=== PATIENT | female | born 1990 | race Caucasian/White ===

== ENCOUNTER → 2017-04-08 15:09 | Outpatient (CLI) | payer OTHER, SELFPAY ==
[2017-04-08 18:17] LABS: Chlamydia Trachomatis by PCR Negative (Negative); Neisserai gonorrhoeae by PCR Negative (Negative); Probe Check PASS; Sample Adequacy Control PASS; Specimen Processing Control PASS
== END ==
PROVIDERS: Visit Provider Obstetrics & Gynecology
DX: Z12.4 Encounter for screening for malignant neoplasm of cervix (principal); Z11.3 Encounter for screening for infections with a predominantly sexual mode of transmission; Z32.01 Encounter for pregnancy test, result positive
CPT/HCPCS: 87491; 87591

== ENCOUNTER → 2017-05-06 10:39 | Outpatient (CLI) | payer OTHER, SELFPAY ==
[2017-05-06 13:47] LABS: Color, Urine Straw (Yellow); Glucose, Dipstick Normal (Normal); Ketone-Dipstick Negative (Negative); Leukocyte Esterase-Dipstick 100 /ul (Negative); Nitrite-Dipstick Negative (Negative); Occult Blood-Urine Negative /ul (Negative); Protein-Dipstick Negative (Negative); Urine Bilirubin Dipstick Negative (Negative); Urine Clarity Clear (Clear); Urine Urobilinogen Normal (Normal)
[2017-05-06 13:53] LABS: Absolute Lymphocyte Count 1.54 X10^3/ul (0.83-4.51); Absolute Neutrophil Count 6.6 X10^3/uL (2.0-7.7); Basophil# 0.03 X10^3/uL; Basophil% 0.3 % (0-1); Eosinophil# 0.07 X10^3/uL; Eosinophils% 0.8 % (0-5); Hematocrit 37.8 % (37-47); Lymphocyte # 1.54 X10^3/ul (4.0); Lymphocyte % 17.7 % (19-41); Mean Corp Hgb Conc 34.4 g/gl (32-36); Mean Corpuscular Hgb 31.7 pg (27.0-32.0); Mean Corpuscular Volume 92.2 fL (81-99); Mean Platelet Vol. 10.9 fl (6.2-12.0); Monocyte# 0.41 X10^3/uL; Monocyte% 4.7 % (0-10); Neutrophil % 76.2 % (47-70); Platelet Count 236 K/mm3 (150-450); RBC Distribution Width CV 12.7 % (11.6-14.6); RBC Distribution Width SD 42.1 fl (35.1-43.9); White Blood Count 8.7 K/mm3 (4.4-11.0)
[2017-05-06 13:59] LABS: POSITIVE COUNT NO; POSITIVE DIFFERENTIAL NO; POSITIVE MORPHOLOGY NO
[2017-05-06 14:01] LABS: Amphetamine Urine VISTA NEGATIVE (<1000 ng/mL); Barbiturate Urine VISTA NEGATIVE (< 200 ng/mL); Benzodiazepine Urine VISTA NEGATIVE (< 200 ng/mL); Cocaine Urine VISTA NEGATIVE (< 300 ng/mL); Ecstacy Urine VISTA NEGATIVE (< 500 ng/mL); Methadone Urine VISTA NEGATIVE (< 300 ng/mL); PCP Urine VISTA NEGATIVE (< 25 ng/mL); THC Urine VISTA NEGATIVE (< 50 ng/mL); Vista UDS pH Range 7
[2017-05-06 14:05] LABS: Thyroid Stim Hormone (TSH) 1.64 uIU/mL (0.358-3.74)
[2017-05-07 10:12] LABS: HIV - WCH Non-Reactive (Nonreactive); Rubella IgG 245.6 IU/mL
[2017-05-07 11:45] LABS: HEPATITIS B SURFACE AG Negative (Negative); Hep C Antibodies 0.2 s/co ratio (0.0-0.9)
[2017-05-09 02:54] LABS: Prenatal RPR NONREACTIVE (NONREACTIVE)
== END ==
LOC: WOBLAB 10:42
PROVIDERS: Visit Provider Obstetrics & Gynecology
DX: Z34.82 Encounter for supervision of other normal pregnancy, second trimester (principal)
CPT/HCPCS: 36415; 80307; 81002; 84443; 85025; 86703; 86762; 86803; 87340

== ENCOUNTER → 2017-06-03 09:52 | Outpatient (CLI) | payer OTHER, SELFPAY ==
[2017-06-06 20:07] LABS: Comment Report (.); DIA MoM Value 0.53 (.); DIA Value-EIA 80.21 pg/mL (.); DSR (By Age) 805 (.); DSR (Second Trimester) 10000 (.); Gestat. Age Based On As provided (.); Insulin Dep Diabetes No (.); Maternal Age At EDD 28.7 YEARS (.); hCG MoM 0.41 (.); hCG Value 11821 mIU/mL (.)
== END ==
PROVIDERS: Visit Provider Obstetrics & Gynecology
DX: Z34.82 Encounter for supervision of other normal pregnancy, second trimester (principal)
CPT/HCPCS: 36415; 82105; 82677; 84702; 86336

== ENCOUNTER 2017-08-01 16:05 | Outpatient (CLI) | payer OTHER, SELFPAY ==
[2017-08-01 16:35] LABS: Red Blood Cells-Urine 0 SEEN /hpf (0-5)
[2017-08-01 16:38] VITALS: BMI 34.7
[2017-08-01 16:40] LABS: Color, Urine Yellow (Yellow); Glucose, Dipstick Normal (Normal); Ketone-Dipstick Negative (Negative); Leukocyte Esterase-Dipstick 25 /ul (Negative); Nitrite-Dipstick Negative (Negative); Occult Blood-Urine Negative /ul (Negative); Protein-Dipstick Negative (Negative); Urine Bilirubin Dipstick Negative (Negative); Urine Clarity Sl. Cloudy (Clear); Urine Urobilinogen Normal (Normal)
[2017-08-01 16:48] LABS: Squamous Epithelial Cells - UA 0-5 SEEN /hpf (5-10)
[2017-08-01 16:49] LABS: Bacteria 1+ /hpf (None Seen); White Blood Cells 0-5 SEEN /hpf (0-5)
[2017-08-01 16:50] LABS: Mucous, Urine RARE /hpf (<or=2+)
[2017-08-01 17:32] LABS: ROM Internal Control Test YES-OK TO RESULT pt. (Internal QC); ROM Patient Test Negative (Negative)
--- NOTE | 2017-08-05 07:21 | OB.TRI.NOTE ---
- Problem List (1) False labor before 37 completed weeks of gestation Status: Acute Qualifiers: Trimester: second trimester Qualified Code(s): O47.02 - False labor before 37 completed weeks of gestation, second trimester History of Present Illness Date of Service: 08/01/17 Was patient seen by the physician?: Yes Reason For Visit: LEFT UPPER QUADRANT PAIN Final TORRES: 11/10/17 Final TORRES Source: US <20 weeks Gestational age: 26 Weeks and 1 Days History of Present Illness: 27yo @ 25 4/7wga with c/o iesha-umbilical pain with extension into Left upper quadrant. Denies nausea, vomiting, chest pain, shortness of breath, back pain, dysuria, urinary urgency, hematuria, constipation, diarrhea, fever or chills. Fetus is active. + increase in vaginal discharge. No vaginal bleeding. Uncertain if has contractions. Denies abdominal tightening however. Home Medications Medication Instructions Recorded Vits [Prenatabs FA] 1 tablet PO DAILY 08/01/17 Allergies cat dander Allergy (Unverified 08/01/17 16:41) Other grass pollen Allergy (Unverified 08/01/17 16:41) Shortness of breath pollen extracts Allergy (Unverified 08/01/17 16:41) Anaphylaxis Physical Exam Vitals: avss General: Alert, Oriented x3, Cooperative, No apparent distress Cardiovascular: Regular Rhythm Lungs: Normal air movement Abdomen: Soft, Non Tender, Non-Distended, Gravid, No hernias noted Extremities:: No edema Estimated gestational size: Appropriate for gestational size NST - FHR Rate Baby A Baseline: 150 Variability:: Minimal Accelerations:: None Decelerations:: None NST Reactive:: Appropriate for gestational age FHR Category:: Category II Uterine Activity:: none Impression/Plan 27yo @ 25 4/7wga with false labor -ROM plus negative -U/A not c/w UTI, Ucx pending -d/c home with PTL precautions
== END 2017-08-01 18:15 | disposition home or self-care (01) ==
LOC: WPOUT 16:12 → WP 16:13
PROVIDERS: Visit Provider Obstetrics & Gynecology
DX: O47.02 False labor before 37 completed weeks of gestation, second trimester (principal); Z3A.26 26 weeks gestation of pregnancy
CPT/HCPCS: 59025; 59050; 81001; 84112; 87086; 87088; 99218; G0378

== ENCOUNTER → 2017-08-26 08:56 | Outpatient (CLI) | payer OTHER, SELFPAY ==
[2017-08-26 11:04] LABS: Hematocrit 34.3 % (37-47); Hemoglobin 11.6 g/dl (12.0-15.0); Mean Corp Hgb Conc 33.8 g/gl (32-36); Mean Corpuscular Hgb 32.5 pg (27.0-32.0); Mean Corpuscular Volume 96.1 fL (81-99); Mean Platelet Vol. 11.2 fl (6.2-12.0); Platelet Count 191 K/mm3 (150-450); RBC Distribution Width CV 12.6 % (11.6-14.6); RBC Distribution Width SD 42.9 fl (35.1-43.9); Red Blood Count 3.57 M/mm3 (4.2-5.4); Scan Indicated on CBC? Y/N NO
[2017-08-26 11:14] LABS: Glucose Challenge Gest 1H 50g 82 mg/dL (70-140)
== END ==
PROVIDERS: Visit Provider Obstetrics & Gynecology
DX: Z34.83 Encounter for supervision of other normal pregnancy, third trimester (principal)
CPT/HCPCS: 36415; 82950; 85027

== ENCOUNTER → 2017-10-07 13:45 | Outpatient (CLI) | payer OTHER, SELFPAY ==
[2017-10-07 18:14] LABS: Group B Strep DNA By PCR Negative (Negative); Internal Control PASS; Probe Check PASS; Specimen Processing Control PASS
== END ==
PROVIDERS: Visit Provider Obstetrics & Gynecology
DX: Z36.85 Encounter for antenatal screening for Streptococcus B (principal)
CPT/HCPCS: 87081; 87653

== ENCOUNTER 2017-10-31 15:05 | Outpatient (CLI) | payer OTHER, SELFPAY ==
[2017-10-31 15:35] VITALS: BMI 37.8
--- NOTE | 2017-11-02 11:25 | OB.TRI.NOTE ---
History of Present Illness Reason For Visit: NST Date of Service: 10/31/17 Final TORRES: 11/10/17 Final TORRES Source: US <20 weeks Gestational age: 38 Weeks and4 Days History of Present Illness: 38+ week intrauterine presents with decreased movement. Due for a repeat next week. Allergies pollen extracts Allergy (Mild, Unverified 10/31/17 15:38) Anaphylaxis cat dander Allergy (Unverified 08/01/17 16:41) Other grass pollen Allergy (Unverified 08/01/17 16:41) Shortness of breath NST - FHR Rate Baby B NST Reactive:: Yes FHR Category:: Category I Impression/Plan 38+ week intrauterine with decreased movement. Reactive nonstress test. Will release to home with routine instructions.
== END 2017-10-31 16:55 | disposition home or self-care (01) ==
LOC: WPOUT 15:12 → WP 15:13
PROVIDERS: Visit Provider Obstetrics & Gynecology
DX: O36.8130 Decreased fetal movements, third trimester, not applicable or unspecified (principal); Z3A.38 38 weeks gestation of pregnancy
CPT/HCPCS: 59025; 59050; 99218; G0378

== ENCOUNTER 2017-11-03 03:39 | Inpatient (IN) | payer OTHER, SELFPAY ==
[2017-11-03] VITALS (23 sets, daily range): BP systolic 92–123; BP diastolic 48–76; PULSE 59–85; RESP 15–18; TEMP 36.2–36.7; O2SAT 96–100; BMI 37.2
[2017-11-03] MEDS: Lactated Ringers 1,000 ML 999 ML IV (04:00)
[2017-11-03 04:30] LABS: Prothrombin Time (Protime)PT. 12.9 SECONDS (11.7-14.9)
[2017-11-03 04:31] LABS: Absolute Lymphocyte Count 1.74 X10^3/ul (0.83-4.51); Absolute Neutrophil Count 8.1 X10^3/uL (2.0-7.7); Basophil# 0.03 X10^3/uL; Basophil% 0.3 % (0-1); Eosinophil# 0.08 X10^3/uL; Eosinophils% 0.7 % (0-5); Hematocrit 37.2 % (37-47); Hemoglobin 12.5 g/dl (12.0-15.0); Lymphocyte # 1.74 X10^3/ul (4.0); Lymphocyte % 16.3 % (19-41); Mean Corp Hgb Conc 33.6 g/gl (32-36); Mean Corpuscular Hgb 31.9 pg (27.0-32.0); Mean Corpuscular Volume 94.9 fL (81-99); Mean Platelet Vol. 10.9 fl (6.2-12.0); Monocyte# 0.62 X10^3/uL; Monocyte% 5.8 % (0-10); Neutrophil # 8.09 X10^3/uL (2.7-7.7); Neutrophil % 75.8 % (47-70); POSITIVE COUNT NO; POSITIVE DIFFERENTIAL NO; POSITIVE MORPHOLOGY NO; Partial Thromboplast Time 25.8 Seconds (24.1-36.2); Platelet Count 184 K/mm3 (150-450); RBC Distribution Width SD 44.7 fl (35.1-43.9); Red Blood Count 3.92 M/mm3 (4.2-5.4); White Blood Count 10.7 K/mm3 (4.4-11.0)
[2017-11-03] MEDS: Lactated Ringers 1,000 ML 150 ML IV (04:58)
[2017-11-03] MEDS: Sodium Citrate/Citric Acid 30 ML UDC PO (05:46)
[2017-11-03] MEDS: Cefazolin 2 GM in 0.9% Normal Saline 100 ML IV (05:56)
--- NOTE | 2017-11-03 07:24 | PCM.IMED.CSR ---
- Problem List (1) 39 weeks gestation of Status: Acute (2) Previous section Status: Acute C-Dezufdg-Embxpzcyd PostOp Date of Procedure: 11/03/17 Primary Surgeon/Physician: Kenia Lowry, extract operator: Wilson Aponte Pre-op Diagnosis: Repeat Elective Post-Op Diagnosis: Repeat Elective Surgery/Procedure Performed: Repeat low transverse Section Description of Surgical Findings:: Normal appearing tubes; endometriotic like implants on uterine serosa; omental adhesions to anterior abdominal wall Estimated Blood Loss: 500 mL Specimens Removed: 1. endometriotic implant from uterine serosa Type of Anesthesia: Spinal - Admit VTE Documentation VTE Present on Admission: No VTE Mechan Device Prophylaxis: SCD's VTE Pharm Prophylaxis ordered?: No
--- NOTE | 2017-11-03 07:27 | PCM.OB.CSR ---
- Problem List (1) 39 weeks gestation of Status: Acute (2) Previous section Status: Acute Delivery Classification: Scheduled Final TORRES: 11/10/17 Gestational age: 39 Weeks and 0 Days Indications: 27-year-old 2 para 1001 presents at 39 weeks gestational age for scheduled section and bilateral tubal ligation. On arrival patient reported uncertainty about desired to proceed with tubal ligation. Following discussion she and I opted to forego this and will consider alternative contraceptive methods. Risks, benefits, indications of procedure were reviewed at length. Consents were signed previously. Indications for : Repeat Elective Description of Procedure: Normal appearing tubes; endometriotic like implants on uterine serosa; omental adhesions to anterior abdominal wall Procedure: The patient was taken to the operating room and spinal analgesia was administered. She is placed in a dorsal supine position with left lateral tilt. The perineum and abdomen were prepped and draped in sterile fashion. And the spinal was found to be adequate. A Pfannenstiel incision was made using a scalpel and brought down to incise the subcutaneous tissue and rectus fascia at the midline. Subcutaneous tissue was bluntly dissected off the fascia laterally. The fascial incision was dissected laterally and cephalad using curved Mcguire scissors. The superior leaflet of the rectus fascia was grasped using Enzo clamps and bluntly dissected and sharply dissected from the underlying rectus muscle. In a similar fashion the inferior rectus fascia was dissected from the underlying muscle. The rectus muscles were bluntly at the midline. The peritoneum was identified and entered [sharply]. The bladder blade was placed into the abdomen and the vesicouterine peritoneal fold identified. The fold was incised and a bladder flap created. Bladder blade was then repositioned to the abdomen. A low transverse hysterotomy was made using the [Metzenbaum scissors] to level of the membranes. The hysterotomy was extended bluntly cephalad and caudad. The membranes were then ruptured revealing clear fluid. The head was elevated and brought to the level of the hysterotomy and the infant delivered revealing vigorous [male] . The cord was doubly clamped and cut after 60 seconds. The was passed to awaiting [nursery personnel]. The placenta was [expressed] from the uterus and appeared intact on inspection. The uterus was cleared of debris. The hysterotomy was then repaired using 0 Vicryl running lock suture with excellent hemostasis. What appeared to be an endometriotic implant on the anterior uterine serosa was excised using the Bovie and sent for pathology. The bladder blade was removed. The anterior cul-de-sac was cleared of debris. Omental adhesions to the anterior abdominal wall with windows were serially Jacquelin clamped, cut and suture ligated with 0 Vicryl. There was good hemostasis. The peritoneum was reapproximated using 2-0 Vicryl running suture. The rectus fascia was closed using 0 Vicryl running suture. The subcutaneous tissue was irrigated and small capillary bleeding controlled using the Bovie device. The subcutaneous tissue was reapproximated using 2-0 Vicryl. The skin was closed using 4-0 Monocryl subcuticularly by the TRAIN CALLER under my supervision. A Mepilex occlusive dressing was placed over the incision. The fundus was firm. The patient was then transferred to the recovery room without complication. Sponge, instrument, and needle counts were correct ?2. Amniotic Membrane Rupture Type: Spontaneous Amniotic Fluid Description: Clear Placenta Disposition: [facility] Specimen(s) sent to pathology: 1. endometriotic implant from uterine serosa Drain: Sultana to straight drain Fluids Replaced: 1500 ml Cord Entanglement: None Cord Vessel Description: 3 Vessels Esitmated Blood Loss (ml): 500 Infant Gender: Male (1 minute): 8 (5 minute): 9 Delayed cord clamping: Yes Pre-op Antibiotic Given: Ancef 2 grams IV x1 Pt instructed on risks of surgery: Bleeding, Anesthesia Risks, Infection, Need for Future C-Sections, Injury to surrounding structure(s) including bowel and bladder - Admit VTE Documentation VTE Present on Admission: Yes VTE Mechan Device Prophylaxis: SCD's VTE Pharm Prophylaxis ordered?: No
--- NOTE | 2017-11-03 07:35 | EMB_PTH ---
PATIENT: JAYCOB TINOCO LOC: [facility] U#:[id number] AGE/SX: 27/F ROOM: WP007 RE11/03/[address]: Dr. Kenia Prieto MD : 1990 BED: 1 DIS: 11/05/2017 SPEC #: [id number] RECD: 11/03/17 08:09 STATUS: BINDU DUTCH #: [id number] SUSI: 11/03/17 07:[address]: Kenia Britton DEPT: SURGICAL PATHOLOGY RECD BY: Jim Grajeda ENTERED: 11/03/17 13:41 SP TYPE: ENDOM BX/C ELYSE DR: No Primary Care Phys Tissues: Endometrium, NOS Procedures: Surgery Specimen Level IV HEADER OPERATION: Repeat section PRE-OP DIAGNOSIS: Painful and heavy periods TISSUE SUBMITTED: Endometriotic implant MICROSCOPIC DIAGNOSIS Endometriotic implant, biopsy: Benign fibrovascular tissue. No evidence of endometriosis. AM:jose 11/04/17 MICROSCOPIC DESCRIPTION Slides are reviewed. GROSS DESCRIPTION Received is one container labeled with the patient's name and not further designated. The specimen consists of an irregular fragment of dark atkins soft tissue measuring 0.6 x 0.5 x 0.2 cm. The specimen is totally submitted in one cassette. / AM:jose 11/03/17 TC:5 CPT: 76804
[2017-11-03 08:07] LABS: Pathology Specimen OB SEE PATHOLOGY REPORT
[2017-11-03] MEDS: Oxytocin 30 units/NS 500 ml 30 UNITS/500 ML IV.SOLN 167 UNITS IV (08:09)
[2017-11-03] MEDS: Prenatal Vits Tablet 1 TABLET PO (14:51)
[2017-11-03] MEDS: Lactated Ringers 1,000 ML 100 ML IV (16:06)
[2017-11-03] MEDS: Ketorolac 30 MG/ML Syringe IV (18:18)
[2017-11-03] MEDS: 0.9% Saline Lock 10 ML Syringe IV (20:32)
[2017-11-04] VITALS (7 sets, daily range): BP systolic 106–127; BP diastolic 66–73; PULSE 73–97; RESP 16–18; TEMP 36.1–36.6; O2SAT 96–100
[2017-11-04] MEDS: Ketorolac 30 MG/ML Syringe IV ×4 (00:37→22:22)
[2017-11-04] MEDS: 0.9% Saline Lock 10 ML Syringe IV ×3 (00:38→22:22)
[2017-11-04 04:36] LABS: Hematocrit 33.2 % (37-47); Mean Corp Hgb Conc 33.1 g/gl (32-36); Mean Corpuscular Hgb 31.6 pg (27.0-32.0); Mean Corpuscular Volume 95.4 fL (81-99); Mean Platelet Vol. 10.3 fl (6.2-12.0); Platelet Count 158 K/mm3 (150-450); RBC Distribution Width CV 13.1 % (11.6-14.6); RBC Distribution Width SD 45.3 fl (35.1-43.9); Red Blood Count 3.48 M/mm3 (4.2-5.4); White Blood Count 11.6 K/mm3 (4.4-11.0)
[2017-11-04 04:37] LABS: Scan Indicated on CBC? Y/N NO
--- NOTE | 2017-11-04 08:05 | PCM.PN.OB ---
Patient Problems: Active and Suspected Problems 39 weeks gestation of (Acute) Previous section (Acute) Subjective: No issues overnight. Passing flatus, tolerates PO without nausea or vomiting. No bowel movement yet. is latching and nursing well. Pain is minimal. OOB, voided already twice this morning. She feels well. Objective: AVSS - Physical Exam General: Alert, Oriented x3, Cooperative, No apparent distress HEENT: Atraumatic, Normocephalic Lungs: Clear to auscultation, Normal air movement, No rhonchi, No wheeze, No rales Cardiovascular: Regular rate, Regular Rhythm, Normal S1, Normal S2 Abdomen: Bowel Sounds Present, Soft, Non Tender, Non-Distended, - - Fundus firm and nontender, incisional dressing c/d/i Extremities: No edema, No Calf Tenderness Neurological: Neuro grossly intact Psych/Mental Status: Normal Affect, Appropriate, Alert and oriented to time, place, person, mood and affect Vital Signs Temp Pulse Resp BP Pulse Ox 97.2 F L 73 18 107/66 96 11/04/17 04:00 11/04/17 04:00 11/04/17 06:00 11/04/17 04:00 11/04/17 06:00 Oxygen Delivery Method Room Air Weight: 92.261 kg Body Mass Index (BMI) 37.2 Intake and Output for Last 24 Hours 11/02/17 11/03/17 11/04/17 23:59 23:59 23:59 Intake Total 5563 / 5563 1624 / 1624 Output Total 2300 / 2300 2350 / 2350 Balance 3263 / 3263 -726 / -726 Laboratory Tests Past 24 Hrs 11/04/17 04:25 WBC 11.6 H RBC 3.48 L Hgb 11.0 L Hct 33.2 L MCV 95.4 MCH 31.6 MCHC 33.1 RDW 13.1 RDW Differential 45.3 H Plt Count 158 MPV 10.3 Medical Necessity - Tobacco Use Smoking Status: Former smoker Assessment/Plan All Active Problems False labor before 37 completed weeks of gestation (Acute) 39 weeks gestation of (Acute) Previous section (Acute) 27yo POD#1 s/p RLTCS doing well. -Rh positive, Rubella immune -Routine postop care -Regular diet -Ambulation encouraged
[2017-11-04] MEDS: Prenatal Vits Tablet 1 TABLET PO (09:39)
[2017-11-04] MEDS: Senna/Docusate Sodium 1 Tablet PO (09:39)
[2017-11-05 02:00] VITALS: BP 110/69; PULSE 68; RESP 18; TEMP 36.1; O2SAT 95
[2017-11-05] MEDS: 0.9% Saline Lock 10 ML Syringe IV (04:17)
[2017-11-05] MEDS: Ketorolac 30 MG/ML Syringe IV (04:21)
--- NOTE | 2017-11-05 07:47 | PCM.PN.OB ---
Patient Problems: Active and Suspected Problems 39 weeks gestation of (Acute) Previous section (Acute) Subjective: No issues overnight. She is sore this morning, but has not yet taken any Oxycodone. She tolerates a regular diet. No flatus yet. Denies heavy lochia. She desires discharge today. Objective: AVSS - Physical Exam General: Alert, Oriented x3, Cooperative, No apparent distress HEENT: Atraumatic, Normocephalic Lungs: Clear to auscultation, Normal air movement Cardiovascular: Regular rate, Regular Rhythm, Normal S1, Normal S2 Abdomen: Bowel Sounds Present, Soft, Non Tender, Non-Distended, - - Fundus firm and nontender, incisional dressing c/d/i Extremities: No edema, No Calf Tenderness Neurological: Neuro grossly intact Psych/Mental Status: Normal Affect, Appropriate, Alert and oriented to time, place, person, mood and affect Vital Signs Temp Pulse Resp BP Pulse Ox 97.0 F L 68 18 110/69 95 11/05/17 02:00 11/05/17 02:00 11/05/17 02:00 11/05/17 02:00 11/05/17 02:00 Oxygen Delivery Method Room Air Weight: 92.261 kg Body Mass Index (BMI) 37.2 Intake and Output for Last 24 Hours 11/03/17 11/04/17 11/05/17 23:59 23:59 23:59 Intake Total 5563 / 5563 1624 / 1624 Output Total 2300 / 2300 2550 / 2550 Balance 3263 / 3263 -926 / -926 Medical Necessity - Tobacco Use Smoking Status: Former smoker Assessment/Plan All Active Problems False labor before 37 completed weeks of gestation (Acute) 39 weeks gestation of (Acute) Previous section (Acute) 27yo POD#2 s/p RLTCS doing well. -Rh positive, Rubella immune -Routine postop care -Regular diet - -D/C home today
--- NOTE | 2017-11-05 07:57 | PCM.DCCSEC ---
Discharge Diet: No Restrictions Discharge Activity: Return to Normal Activity, May not drive while taking narcotic pain medications., May Shower, May Take a Tub Bath May resume sexual activity in: 6 weeks Lifting Restrictions: 10 lb Call your doctor if your incision/area has: Continuous Slow Oozing, Sudden Increased Bleeding, Increased Pain/ Swelling, Increased Redness, Foul Smelling Discharge Call your doctor if you observe: Fever of 101 or Higher, Inability to urinate, Inability to have a bowel movement, Using more than one pad per hour, Shortness of breath, Chest pain, Calf discomfort, Uncontrolled pain Suture Line Care: Avoid Pulling/Pushing Remove Dressing in (days):: 4 Cleanse incision/area with: Soap & Water Additional Instructions: If you experience any of the following, contact your healthcare provider. Bleeding that soaks a pad every hour for 2 hours Fever 100.4 or higher Unrelieved incision or abdominal pain Swelling, redness, discharge or bleeding from your incision or episiotomy site Your incision begins to separate Problems urinating (including inability to urinate or burning while urinating). Visual changes Severe headache Flu-like symptoms Pain or redness in one of both of your breasts Pain, warmth, tenderness or swelling in your legs, especially the calf area Frequent nausea and vomiting Symptoms of depression or anxiety If you experience any of the following, call 911 or go to the nearest Emergency Room. Chest pain Problems breathing Seizure activity Partial or complete paralysis of a body part, slurred speech, weakness or drooping of the face, or a sudden inability to walk or hold your balance Allergies/Adverse Reactions: Allergies pollen extracts Allergy (Mild, Verified 11/03/17 10:28) Anaphylaxis cat dander Allergy (Verified 11/03/17 10:28) Other grass pollen Allergy (Verified 11/03/17 10:28) Shortness of breath Medications to take at Discharge Vits [Prenatabs FA ] 1 tablet PO DAILY 08/01/17 Ibuprofen 600 mg PO TID PRN #30 tab 11/05/17 Oxycodone [Oxyir] 5 mg PO Q6H PRN PRN #12 tablet 11/05/17 Senna/Docusate Sodium [Senokot-S] 1 - 2 tab PO DAILY PRN #30 tablet 11/05/17 The following prescriptions were given: Ibuprofen 600 mg PO TID PRN #30 tab PRN Reason: Pain Follow-Up: Call to make an appointment with your doctor for an incision check in 1-2 weeks. You will also need a 6 week post- follow up appointment. Test results from this visit will be discussed in further detail at your follow-up appointment, if applicable. Please Follow Up With: Kenia Lowry MD When: 1-2 weeks Primary Care Physician: Care Physician,No Primary [Primary Care Provider] -
[2017-11-05 08:00] VITALS: BP 110/64; PULSE 79; RESP 14; TEMP 36.5
--- NOTE | 2017-11-05 08:02 | PCM.DC.SUM ---
Discharge Date and Diagnosis - Problem List Patient Problems: Active and Suspected Problems 39 weeks gestation of (Acute) Previous section (Acute) Date of Admission: 11/03/17 Date of Discharge: 11/05/17 - Primary Discharge Diagnosis Active and Suspected Problems 39 weeks gestation of (Acute) Previous section (Acute) Hospital Course and Treatment Operations: - - section Summary of Care Provided: The patient is a 27 year old F 2 para 1001 admitted at 39 weeks gestation for scheduled section. She had uncomplicated section. Her post-operative course was unremarkable and she was discharged to home on post-op day #2. Discharge Diet: No Restrictions Discharge Activity: Return to Normal Activity, May not drive while taking narcotic pain medications., May Shower, May Take a Tub Bath May resume sexual activity in: 6 weeks Call your doctor if your incision/area has: Continuous Slow Oozing, Sudden Increased Bleeding, Increased Pain/ Swelling, Increased Redness, Foul Smelling Discharge Call your doctor if you observe: Fever of 101 or Higher, Inability to urinate, Inability to have a bowel movement, Using more than one pad per hour, Shortness of breath, Chest pain, Calf discomfort, Uncontrolled pain Suture Line Care: Avoid Pulling/Pushing Remove Dressing in (days):: 4 Cleanse incision/area with: Soap & Water Home Medications: Medications to take at Discharge Vits [Prenatabs FA ] 1 tablet PO DAILY 08/01/17 Ibuprofen 600 mg PO TID PRN #30 tab 11/05/17 Oxycodone [Oxyir] 5 mg PO Q6H PRN PRN 3 Days #12 tablet 11/05/17 Senna/Docusate Sodium [Senokot-S] 1 - 2 tab PO DAILY PRN #30 tablet 11/05/17 Following Prescrptions Were Given to Patient: Oxycodone [Oxyir] 5 mg PO Q6H PRN PRN 3 Days #12 tablet PRN Reason: Pain Ibuprofen 600 mg PO TID PRN #30 tab PRN Reason: Pain Primary Care Physician: Care Physician,No Primary [Primary Care Provider] - Please Follow Up With: Kenia Lowry MD When: 1-2 weeks Medical Necessity - Tobacco Use Smoking Status: Former smoker Meaningful Use Info Meaningful Use Diagnoses (Choose all that apply): None applicable
[2017-11-05] MEDS: Senna/Docusate Sodium 1 Tablet PO (09:50)
[2017-11-05] MEDS: Prenatal Vits Tablet 1 TABLET PO (09:50)
[2017-11-05] MEDS: Ibuprofen 600 MG Tablet PO (09:50)
== END 2017-11-05 11:15 | disposition home or self-care (01) | DRG 766 ==
PROVIDERS: Admitting Provider Obstetrics & Gynecology; Visit Provider Obstetrics & Gynecology
PROC: 10D00Z1 Extraction of Products of Conception, Low, Open Approach (ICD-10-PCS; CPT 59514; principal; 2017-11-03 06:00)
DX: O34.211 Maternal care for low transverse scar from previous cesarean delivery (principal); Z3A.39 39 weeks gestation of pregnancy; Z37.0 Single live birth; Z87.891 Personal history of nicotine dependence
CPT/HCPCS: 85025; 85027; 85610; 85730; 86850; 86900; 88305; 99218; J7120; A4216; G0378

== ENCOUNTER → 2020-06-14 16:25 | Outpatient (CLI) | payer OTHER, SELFPAY ==
[2020-06-14 16:13] VITALS: BMI 30.8
--- NOTE | 2020-06-14 16:28 | RAD_ITS ---
STUDY: X-RAY - RIGHT HAND, ATTENTION FIRST FINGER REASON FOR EXAM: Female, 30 years old. right thumb FB TECHNIQUE: 3 view(s) of the finger were obtained. COMPARISON: None. FINDINGS: Very subtle linear metal density suggested of the soft tissues of the thumb just distal to the tuft of the distal phalanx. Apparently this is consistent with the history of a fine aluminum foreign body. Normal bones and joints . Otherwise normal soft tissues. RAD/Finger(s) Min 2 Views IMPRESSION: Very subtle linear metal density in the soft tissues distal to the first distal phalanx. Electronically Signed: Pardeep Gay MD at 17:17 EDT , Service support ,
--- NOTE | 2020-06-14 17:19 | RAD_ITS ---
STUDY: X-RAY - RIGHT HAND, ATTENTION FIRST FINGER REASON FOR EXAM: Female, 30 years old. REMOVAL OF METAL/ RE-XRAY FINGER TECHNIQUE: 3 view(s) of the finger were obtained. COMPARISON: None. FINDINGS: Previously seen subtle metal foreign body no longer visible. No other abnormalities. Electronically Signed: Pardeep Gay MD at 18:13 EDT , Service support , RAD/Finger(s) Min 2 Views
== END ==
PROVIDERS: Referring Provider Physician Assistant; Visit Provider Physician Assistant
DX: S61.031A Puncture wound without foreign body of right thumb without damage to nail, initial encounter (principal); S60.351A Superficial foreign body of right thumb, initial encounter
CPT/HCPCS: 73140